=== PATIENT | male | born 1980 | race Caucasian/White ===

== ENCOUNTER 2016-11-02 15:38 | Emergency (ER) | payer OTHER ==
[~2016-11-02] VITALS: Ht 177.8 cm; Wt 71.6 kg
[2016-11-02 15:47] VITALS: TEMP 36.5; Ht 177.8 cm; Wt 71.6 kg
[2016-11-02] MEDS ORDERED: IBUP-1050 PO (15:50)
[2016-11-02] MEDS ORDERED: KETOROLAC TROMETHAMINE 30 MG/ML VIAL IV STA (16:18)
--- NOTE | 2016-11-02 16:20 | EMERGENCY ROOM VISIT NOTE ---
History Report prepared by [place]: Anjelica Ahuja Under the Supervision of: Dr. Lonnie Monte M.D. First contact with patient: 16:08 Chief Complaint: ABDOMINAL PAIN Stated Complaint: ABD PAIN Nursing Triage Summary: Patient arrives via ALS from [facility] in [place] with complaints of right lower quadrant abdominal pain. Denies radiation. Rated pain 10/10 when ALS arrived. Received 75mcg of Fentanyl and 1L bolus admin. by EMS. Patient now rating pain 5/10. Denies blood or pain with urination. History of Present Illness The patient is a 36 year old male who presents to the Emergency Room with complaints of intermittent right lower quadrant abdominal pain that began last week. He currently rates his discomfort as a 5/10 in severity. The patient states that he first noticed the pain last week, but states that it went away on its own. He states that today the pain returned suddenly. The patient notes that the pain radiates to his back and right testicle. He notes burning with urination, but denies any hematuria. The patient denies any history of kidney stones. He denies any fever, chills, nausea, or vomiting. The patient denies any recent injuries with work. He denies any active medical problems. The patient notes a history of a left sided hernia, noting that it was surgically repaired. He states that today he went to an urgent care in [place] and was referred to the emergency department for further work up. Source of History: patient, family, spouse/significant other Onset: last week Position: abdomen (RLQ) Symptom Intensity: 5/10 Timing: intermittent Associated Symptoms: + back pain, + urinary symptoms (burning with urniation ), No chills, No fevers, No nausea, No vomiting Note: Associated Symptoms: right testicular pain Review of Systems See HPI for pertinent positives & negatives. A total of 10 systems reviewed and were otherwise negative. Past Medical & Surgical Surgical Problems: (1) S/P hernia repair Old medical records were reviewed. Nurse's notes were reviewed and I agree with. . No history of kidney stones. Inguinal hernia repair. Still has appendix Family History No pertinent family history stated. Social History Smoking Status: Former Smoker Drug Use: none Marital Status: Housing Status: lives with significant other Occupation Status: employed Current/Historical Medications Scheduled Ibuprofen (Advil), 200-600 MG PO Q4H Scheduled PRN Oxycodone Immediate Rel Tab (Roxicodone Ir), 1-2 TAB PO Q4H PRN for Severe Pain Allergies Coded Allergies: Penicillins (Unverified Allergy, Unknown, RASH, 11/02/16) Physical Exam Vital Signs Date Time Temp Pulse Resp B/P Pulse Ox O2 Delivery O2 Flow Rate FiO2 11/02/16 19:28 77 18 137/81 96 Room Air 11/02/16 19:23 65 11/02/16 17:28 64 16 135/90 99 Room Air 11/02/16 15:52 81 11/02/16 15:47 36.5 64 16 141/104 98 Room Air Physical Exam General: Well developed well nourished, non-ill appearing young male, in no acute distress, breathing comfortably on room air. Normal speech HEENT: Normal cephalic atraumatic. Pupils are equal round and reactive to light. Clear anicteric. Extraocular movements are intact. Oropharynx is pink with moist mucous membranes. No swelling of the mouth lips or tongue. Neck: Supple with a midline trachea. No meningeal signs or stiffness, no JVD or bruits. No Stridor. Chest: Clear to auscultation bilaterally. No wheezes or rhonchi. No increased work of breathing. Heart: regular rate and rhythm. Abdomen: Minimally tender to the right lower quadrant to groin. Soft, nondistended without rebound guarding or rigidity. Gu: Normal testicles. No evidence of torsion, epididymitis, or mass. There may be a small hernia on the right that is felt with coughing only. No redness or warmth or evidence of incarceration. Extremities: No cyanosis clubbing or edema. No calf tenderness or assymetry Spine/Back. Non tender to palpation. No CVA tenderness Skin: Good turgor without rashes. Neurologic exam: Cranial nerves two through 12 are intact. Motor and sensation are intact and symmetrical throughout. Medical Decision & Procedures ER Provider Diagnostic Interpretation: CT results as stated below per my review and radiologist interpretation: ABDOMEN AND PELVIS CT WITHOUT CONTRAST CT DOSE: 460.24 mGy.cm HISTORY: Pain revalue for stone, appy, hernia TECHNIQUE: Multiaxial CT images of the abdomen and pelvis were performed without the use of intravenous and oral contrast according to the standard department stone protocol. COMPARISON STUDY: None. FINDINGS: Lung bases are clear. Liver spleen and pancreas are considered unremarkable. Gallbladder is negative for distention. Kidneys negative for hydronephrosis or calcification. The adrenal glands are unremarkable. The ureters normal in course and caliber. Bladder is midline with no evidence for a contain calcification. Bowel pattern within the abdomen and pelvis is nonobstructive. Patient is composed of the appendix are unremarkable. There are small bilateral fat-containing inguinal hernias. These are non bowel containing nonobstructive findings. IMPRESSION: 1. Small bilateral fat-containing inguinal hernias. 2. These hernias are non bowel containing nonobstructive findings. 3. Study is otherwise negative Electronically signed by: Jake Ly M.D. 11/02/2016 5:20 PM Dictated Date/Time: 11/02/2016 5:16 PM Laboratory Results 11/02/16 15:07 Red Blood Count 4.82, Mean Corpuscular Volume 87.1, Mean Corpuscular Hemoglobin 30.7, Mean Corpuscular Hemoglobin Concent 35.2, Mean Platelet Volume 12.2, Neutrophils (%) (Auto) 44.7, Lymphocytes (%) (Auto) 38.4, Monocytes (%) (Auto) 8.9, Eosinophils (%) (Auto) 7.0, Basophils (%) (Auto) 0.7, Neutrophils # (Auto) 3.36, Lymphocytes # (Auto) 2.89, Monocytes # (Auto) 0.67, Eosinophils # (Auto) 0.53, Basophils # (Auto) 0.05 11/02/16 15:07 Test 11/02/16 15:07 11/02/16 17:23 White Blood Count 7.52 K/uL (4.8-10.8) Red Blood Count 4.82 M/uL (4.7-6.1) Hemoglobin 14.8 g/dL (14.0-18.0) Hematocrit 42.0 % (42-52) Mean Corpuscular Volume 87.1 fL (80-100) Mean Corpuscular Hemoglobin 30.7 pg (25-34) Mean Corpuscular Hemoglobin Concent 35.2 g/dl (32-36) Platelet Count 197 K/uL (130-400) Mean Platelet Volume 12.2 fL (7.4-10.4) Neutrophils (%) (Auto) 44.7 % Lymphocytes (%) (Auto) 38.4 % Monocytes (%) (Auto) 8.9 % Eosinophils (%) (Auto) 7.0 % Basophils (%) (Auto) 0.7 % Neutrophils # (Auto) 3.36 K/uL (1.4-6.5) Lymphocytes # (Auto) 2.89 K/uL (1.2-3.4) Monocytes # (Auto) 0.67 K/uL (0.11-0.59) Eosinophils # (Auto) 0.53 K/uL (0-0.5) Basophils # (Auto) 0.05 K/uL (0-0.2) RDW Standard Deviation 44.0 fL (36.4-46.3) RDW Coefficient of Variation 13.8 % (11.5-14.5) Immature Granulocyte % (Auto) 0.3 % Immature Granulocyte # (Auto) 0.02 K/uL (0.00-0.02) Anion Gap 10.0 mmol/L (3-11) Est Creatinine Clear Calc Drug Dose 106.5 ml/min Estimated GFR () 114.7 Estimated GFR (Non- 99.0 BUN/Creatinine Ratio 14.2 (10-20) Calcium Level 8.9 mg/dl (8.5-10.1) Total Bilirubin 0.3 mg/dl (0.2-1) Direct Bilirubin < 0.1 mg/dl (0-0.2) Aspartate Amino Transf (AST/SGOT) 18 U/L (15-37) Alanine Aminotransferase (ALT/SGPT) 32 U/L (12-78) Alkaline Phosphatase 66 U/L (45-117) Total Protein 7.6 gm/dl (6.4-8.2) Albumin 4.3 gm/dl (3.4-5.0) Lipase 127 U/L (73-393) Urine Color YELLOW Urine Appearance CLEAR (CLEAR) Urine pH 6.5 (4.5-7.5) Urine Specific [place] 1.023 (1.000-1.030) Urine Protein NEG (NEG) Urine Glucose (UA) NEG (NEG) Urine Ketones NEG (NEG) Urine Occult Blood NEG (NEG) Urine Nitrite NEG (NEG) Urine Bilirubin NEG (NEG) Urine Urobilinogen NEG (NEG) Urine Leukocyte Esterase NEG (NEG) Laboratory studies as stated above per my review. Medications Administered Medications (Trade) Dose Ordered Sig/Charito Route Start Time Stop Time Status Last Admin Dose Admin Ketorolac Tromethamine (Toradol Inj) 30 mg NOW STAT IV 11/02/16 16:18 11/02/16 16:21 DC 11/02/16 16:57 30 MG Oxycodone HCl (Roxicodone Immediate Rel 5MG Home Pack) 1 homepack UD ONCE PO 11/02/16 19:45 11/02/16 19:46 DC 11/02/16 19:58 1 HOMEPACK ED Course 160: Past medical records reviewed. The patient was evaluated in room A3, and a complete history and physical examination were performed. 1617: Ordered Toradol Inj 30 mg IV. 1846: I reevaluated the patient and he is resting comfortably. We are waiting his urine culture. 1939: I reevaluated the patient and he is resting comfortably. I discussed the exam findings with him and I discussed the treatment plan. He verbalized complete understanding and agreement. He is ready to go home. 1944: Ordered Oxycodone HCl 1 homepack PO. Medical Decision Differentials include, but are not limited to; kidney stone, hernia, appendicitis, electrolyte or metabolic abnormality, UTI. This patient comes in as described above. He was placed in room A3. He was brought in after having right lower quadrant abdominal pain fairly did hurt his back as well as his groin. He has no history of kidney stones. On exam, he is not significantly tender. He does have some mild tenderness towards her groin. There is no evidence of incarcerated hernia and has a normal testicular exam. There is no evidence of testicular torsion or epididymitis. He has no urinary symptoms. IV access established. He had been given fentanyl IV prior and given IV Toradol here and was resting comfortably. He has no white count or fever to suggest infection or sepsis. He has no acute electrode or metabolic abnormalities. His urinalysis does not suggest a UTI or kidney stone. CAT scan shows no acute findings. He does have small bilateral fat- containing inguinal hernias this potentially could be causing symptoms although on exam I don't think so as he has no redness or warmth. I did have use ibuprofen for pain. It could be musculoskeletal. He was given OxyIR prescription if needed for further pain. He was warned that this could make him drows,y do not take before drinking, driving, working. He should return if : increasing pain, worsening of symptoms, fever or chills, any new problems concerns. Follow up with 1-2 days for recheck. The patient and his family were happy with plan and he was discharged home. Impression Primary Impression: Right lower quadrant abdominal pain Scribe Attestation The scribe's documentation has been prepared under my direction and personally reviewed by me in its entirety. I confirm that the note above accurately reflects all work, treatment, procedures, and medical decision making performed by me. Departure Information Dispostion Home / Self-Care Prescriptions Oxycodone Immediate Rel Tab (ROXICODONE IR) 5 Mg Tab 1-2 TAB PO Q4H Y for Severe Pain, #15 TAB Prov: Lonnie Monte M.D. 11/02/16 Forms Call Back Authorization, HOME CARE DOCUMENTATION FORM, IMPORTANT VISIT INFORMATION Patient Instructions My [facility] Additional Instructions Rest. Drink plenty of fluids. Use ibuprofen 400 mg every 6 hours as needed for pain For breakthrough pain,, may use OxyIR 5 mg, one or 2 pills every 4-6 hours as needed OxyIR may make you drowsy and do not take before drinking, driving, working Return if: Increasing pain, worsening of symptoms, fever or chills, redness or warmth, any new problems or concerns. Follow-up with your doctor in 1-2 days for recheck.
[2016-11-02 16:30] LABS: BASO % 0.7 %; BASO ABS # 0.05 K/uL (0-0.2); COMPLETE YES; IG% 0.3 %; LYMPH % 38.4 %; LYMPH ABS # 2.89 K/uL (1.2-3.4); MEAN CELL VOLUME 87.1 fL (80-100); MEAN CORPUSCULAR HEMOGLOBIN 30.7 pg (25-34); MEAN CORPUSCULAR HGB CONC 35.2 g/dl (32-36); MEAN PLATELET VOLUME 12.2 fL (7.4-10.4); MONO % 8.9 %; NEUT % 44.7 %; PLATELET COUNT 197 K/uL (130-400); RED BLOOD COUNT 4.82 M/uL (4.7-6.1); WHITE BLOOD COUNT 7.52 K/uL (4.8-10.8)
[2016-11-02 16:37] LABS: ALT/SGPT 32 U/L (12-78); AST/SGOT 18 U/L (15-37); BLOOD UREA NITROGEN 14 mg/dl (7-18); BUN/CREATININE RATIO 14.2 (10-20); CALCIUM 8.9 mg/dl (8.5-10.1); CARBON DIOXIDE 28 mmol/L (21-32); CHLORIDE 108 mmol/L (98-107); CREATININE 0.99 mg/dl (0.60-1.40); GLUCOSE 103 mg/dl (70-99); POTASSIUM 3.8 mmol/L (3.5-5.1); SODIUM 146 mmol/L (136-145)
[2016-11-02 16:40] LABS: ALKALINE PHOSPHATASE 66 U/L (45-117)
--- NOTE | 2016-11-02 17:21 | DIAGNOSTIC IMAGING REPORT ---
ABDOMEN AND PELVIS CT WITHOUT CONTRAST CT DOSE: 460.24 mGy.cm HISTORY: Pain revalue for stone, appy, hernia TECHNIQUE: Multiaxial CT images of the abdomen and pelvis were performed without the use of intravenous and oral contrast according to the standard department stone protocol. COMPARISON STUDY: None. FINDINGS: Lung bases are clear. Liver spleen and pancreas are considered unremarkable. Gallbladder is negative for distention. Kidneys negative for hydronephrosis or calcification. The adrenal glands are unremarkable. The ureters normal in course and caliber. Bladder is midline with no evidence for a contain calcification. Bowel pattern within the abdomen and pelvis is nonobstructive. Patient is composed of the appendix are unremarkable. There are small bilateral fat-containing inguinal hernias. These are non bowel containing nonobstructive findings. IMPRESSION: 1. Small bilateral fat-containing inguinal hernias. 2. These hernias are non bowel containing nonobstructive findings. 3. Study is otherwise negative Electronically signed by: Jake Ly M.D. 11/02/2016 5:20 PM Dictated Date/Time: 11/02/2016 5:16 PM
[2016-11-02] MEDS ORDERED: OXYC1TAB3 PO (19:23)
[2016-11-02 19:24] LABS: URINE APPEARANCE CLEAR (CLEAR); URINE BILIRUBIN NEG (NEG); URINE COLOR YELLOW; URINE NITRITE NEG (NEG); URINE PH 6.5 (4.5-7.5); URINE SPECIFIC GRAVITY 1.023 (1.000-1.030); UROBILINOGEN NEG (NEG)
[2016-11-02 19:28] VITALS: BP 137/81; PULSE 77; O2SAT 96
[2016-11-02 19:29] LABS: MANUAL MICROSCOPIC REQUIRED? NO; REVIEW REQ? NO
[2016-11-02] MEDS ORDERED: OXYCODONE IR HOME PACK PO ONE (19:45)
== END 2016-11-02 19:58 | disposition home or self-care (01) ==
LOC: C.EDA 15:40
DX: R10.31 Right lower quadrant pain (principal); Z87.891 Personal history of nicotine dependence

== ENCOUNTER → 2017-02-23 | Outpatient (CLI) | payer OTHER ==
[~2017-02-23] MED LIST: IBUP-1050 PO; OXYC1TAB3 PO
[2017-02-23 13:10] LABS: ALT/SGPT 39 U/L (12-78); BLOOD UREA NITROGEN 17 mg/dl (7-18); BUN/CREATININE RATIO 17.4 (10-20); CARBON DIOXIDE 27 mmol/L (21-32); CHLORIDE 108 mmol/L (98-107); CHOLESTEROL 108 mg/dl (0-200); CREATININE 0.99 mg/dl (0.60-1.40); GLUCOSE 88 mg/dl (70-99); POTASSIUM 3.7 mmol/L (3.5-5.1); SODIUM 144 mmol/L (136-145); TRIGLYCERIDES 47 mg/dl (0-150); VERY LOW DENSITY LIPOPROT CALC 9 mg/dl
[2017-02-23 13:17] LABS: ALB/GLOB RATIO 1.2 (0.9-2); ALKALINE PHOSPHATASE 49 U/L (45-117); AST/SGOT 24 U/L (15-37); CHOLESTEROL/HDL RATIO 2.2; HDL CHOLESTEROL 50 mg/dl; LDL CHOLESTEROL CALCULATED 49 mg/dl
[2017-02-23 13:32] LABS: DAYS OF ABSTINENCE 6; METHOD OF COLLECTION MASTURBATION; SEMEN COLOR GRAY OR GRAY-WHITE (GRY/GRYWHTE); SEMEN TIME OF COLLECTION 910; SEMEN VOLUME 5.8 ML (>1.5); TYPE OF SPECIMEN CONTAINER STERILE CUP
[2017-02-23 13:33] LABS: SPERM VIABILITY STAIN NOT INDICATED % (>58%)
== END | disposition home or self-care (01) ==
LOC: C.LAB 10:15
PROVIDERS: ATTEND Neuromusculoskeletal Medicine & OMM
DX: Z00.00 Encounter for general adult medical examination without abnormal findings (principal); N46.9 Male infertility, unspecified

== ENCOUNTER 2020-03-14 12:59 | Observation (INO) ==
[2020-03-14] MEDS ORDERED: ONDANSETRON INJ 2 MG/ML 2 ML VIAL IV STA (13:20)
[2020-03-14] MEDS ORDERED: SODIUM CHLORIDE 0.9% 1000ML 1,000 ML IV SCH (13:30)
[2020-03-14] MEDS: HYDROmorphone INJ 1 MG/ML SYRINGE IV PRN ×2 (13:55→15:02)
[2020-03-14 14:13] LABS: Appearance Urine Clear (Clear); Bilirubin Urine Negative (Negative); Blood Urine Negative (Negative); Color Urine Yellow; Glucose Urine UA Negative (Negative); Ketones Urine Negative (Negative); Leukocyte Esterase Urine Negative (Negative); Nitrite Urine Negative (Negative); Protein Urine Negative (Negative); Specific Gravity Urine 1.021 (1.000-1.030); Urobilinogen Urine Negative (Negative)
[2020-03-14 14:19] LABS: iSTAT Hemoglobin 14.3 g/dl (14.0-18.0); iSTAT Ionized Calcium 1.24 mmol/l (1.12-1.32); iSTAT Potassium 3.9 mmol/L (3.3-5.0)
[2020-03-14 14:25] LABS: Albumin Level 4.2 gm/dl (3.4-5.0); BUN Creatinine Ratio 10.9 (10-20); Calcium 9.1 mg/dl (8.5-10.1); Creatinine Clr Calc Pharmacy 94.4 ml/min; Est GFR (African American) 101.1; Est GFR (Non-African American) 87.2; Potassium 3.8 mmol/L (3.5-5.1)
[2020-03-14 14:28] LABS: Albumin Globulin Ratio 1.1 (0.9-2); Bilirubin,Total 0.4 mg/dl (0.2-1); Globulin 3.9 gm/dl (2.5-4.0); Total Protein 8.1 gm/dl (6.4-8.2)
[2020-03-14 14:43] LABS: Basophils # (auto) 0.04 K/uL (0-0.2); Basophils % (auto) 0.6 %; Eosinophils % (auto) 5.6 %; Hematocrit (blood only) 40.6 % (42-52); Immature Granulocytes # (auto) 0.02 K/uL (0.00-0.02); Immature Granulocytes % (auto) 0.3 %; Lymphocytes # (auto) 1.65 K/uL (1.2-3.4); Lymphocytes % (auto) 23.3 %; Mean Corpuscular Hemoglobin 30.4 pg (25-34); Mean Corpuscular Hgb Conc 34.5 g/dL (32-36); Mean Corpuscular Volume 88.3 fL (80-100); Mean Platelet Volume 11.9 fL (7.4-10.4); Monocytes # (auto) 0.45 K/uL (0.11-0.59); Monocytes % (auto) 6.3 %; Neutrophils # (auto) 4.53 K/uL (1.4-6.5); Neutrophils % (auto) 63.9 %; Platelet Count 191 K/uL (130-400); RDW Coefficient of Variation 13.7 % (11.5-14.5); RDW Standard Deviation 44.4 fL (36.4-46.3); White Blood Count 7.09 K/uL (4.8-10.8)
[2020-03-14] MEDS ORDERED: IOVERSOL 100ml IV PRN (15:11)
--- NOTE | 2020-03-14 15:32 | CT Scan Report ---
CT SCAN OF THE ABDOMEN AND PELVIS WITH IV CONTRAST CLINICAL HISTORY: Left inguinal hernia. COMPARISON STUDY: Abdominal CT dated 11/02/2016. TECHNIQUE: Following the IV administration of 93 cc of Optiray 320, CT scan of the abdomen and pelvi s is performed from the lung bases to the proximal femora. Images are reviewed in the axial, sagittal , and coronal planes. IV contrast was administered without complication. A dose lowering technique wa s utilized adhering to the principles of ALARA. CT DOSE: 384.79 mGycm FINDINGS: Lung bases: The heart is normal in size and without pericardial effusion. The lung bases are clear. Liver: The contrast-enhanced liver is normal in size, contour, and attenuation. There is no intrahepa tic biliary ductal dilatation. The hepatic veins and portal veins are patent. Gallbladder: Unremarkable. Spleen: Normal in size and attenuation. Pancreas: Unremarkable. Adrenal glands: Unremarkable. Kidneys: The contrast enhanced kidneys are normal in size and without hydronephrosis. The kidneys enh ance symmetrically. Subcentimeter cortical hypodensities likely represent cysts but are too small for definitive characterization. Abdominal vasculature: The abdominal aorta is normal in course and caliber noting mild but age advanc ed atherosclerotic calcification. Bowel: A moderate left inguinal hernia contains a loop of small bowel as seen on image #[id number]. The dist al small bowel is decompressed, and the proximal small bowel is distended and fluid-filled measuring up to 3.4 cm in diameter. The appearance is consistent with a small bowel obstruction secondary to in carcerated left inguinal hernia. No focally thick walled bowel loops are identified. No pneumatosis i ntestinalis or portal venous gas is seen. The appendix is well-visualized and normal. Peritoneum: There is no intraperitoneal free air or abdominal ascites. There is a fat-containing umbi lical hernia. Lymphadenopathy: None. Pelvic viscera: The bladder, prostate, and seminal vesicles are normal as imaged. A left inguinal her marah contains a segment of small bowel and fluid. Skeletal structures: Scattered bone islands are seen throughout the pelvis. No lytic or blastic lesio ns are seen. IMPRESSION: 1. Small bowel obstruction secondary to an incarcerated left inguinal hernia. 2. No intraperitoneal free air is seen. There are no focally thick walled bowel loops identified, and there is no pneumatosis intestinalis or portal venous gas. ACT 112: Negative or not required by law. Electronically signed by: Clinton Schultz M.D. 03/14/2020 3:29 PM
--- NOTE | 2020-03-14 16:30 | History & Physical Report ---
Date of Service March 14, 2020 Assessment & Plan (1) Hernia, inguinal, left: Incarcerated small bowel, will need urgent repair. History of Present Illness Primary Care Provider: Mary Ann Solomon DO 39 y/o male with previous left inguinal hernia now with intermittent bulging and pain usually able to reduce this at home until today. No N/V. Had breakfast this morning. Allergies Allergy/AdvReac Type Severity Reaction Status Date / Time amoxicillin Allergy Unknown Verified 03/14/20 13:47 Home Medications Home Medications Medication Instructions Recorded Confirmed Type docusate sodium [Colace] 100 mg PO BID #60 cap 03/14/20 Rx ibuprofen 400 mg PO Q6H PRN 03/14/20 03/14/20 History oxycodone 5 mg PO Q6H PRN #14 tab 03/14/20 Rx sennosides [Senokot] 8.6 mg PO HS #30 tab 03/14/20 Rx Past Med/Surg History Medical History Right inguinal hernia Surgical History H/O hernia repair H/O right inguinal hernia repair (10/27/19) Open Right Direct Inguinal Hernia Repair with Mesh Dr. 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 Feels Safe at Home: Yes Smoking Status: Former smoker Second Hand Exposure: No ; Hx Alcohol Use: Yes Alcohol type: hard liquor Alcohol Intake Frequency: Weekly Hx Substance Use: No Childhood Exposure to Second-Hand Smoke: Yes Diet Comment: regular caffeine: No during the past year weight has: remained stable Dental Care, Regularly: No Physical Activity Frequency: 3-4 Times per Week Physical Activity Frequency Comment: walking Seatbelt Use: always Sunscreen Use: No Review of Systems Constitutional: no fever and no chills Respiratory: no cough and no dyspnea Gastrointestinal: + abdominal pain; no nausea and no vomiting Physical Exam Constitutional: WD/WN, vitals as above Respiratory: normal respiratory effort, lungs clear to auscultation Cardiovascular: RRR, no murmur, no edema Gastrointestinal (Abdomen): Percussion/Palpation: + abdomen tender (lrft iguinal hernia, unable to reduce) and abdomen soft Results & Data Results & Data ([facility]) Vital Signs (Past 12 Hours) Vital Signs Temp Pulse Pulse Resp BP BP Pulse Ox 03/14/20 16:10 89 92 H 17 151/86 H 151/86 H 99 03/14/20 16:09 94 03/14/20 15:30 64 14 134/84 96 03/14/20 15:01 66 19 03/14/20 15:00 63 19 141/87 H 98 03/14/20 14:30 59 L 16 142/93 H 98 03/14/20 14:00 72 14 140/90 97 03/14/20 13:52 98 03/14/20 13:05 36.4 C L 89 18 156/86 H 99 Supervising Physician Co-Signing Physician Notes Patient seen and examined, labs and imaging reviewed, agree with above. 39-year-old male with a history of an open left inguinal hernia performed 17 years ago, and a history of a recent open right inguinal hernia. With mesh performed by Dr. Lares earlier this year, presents to the emergency department with several hours of left groin pain with a bulge. He started havi ng increased pain intermittently over the past few weeks. Today at [employer] he noticed significant pain and was unable to relieve the pain. He presented to the emergency department where a CT scan was performed and showed a left inguinal hernia with incarcerated bowel causing a small bowel obstruction. The ER physician felt he was successful in reducing the hernia, and the patient stated his pain felt better. However, after being asked to walk, he developed the same pain as was present before. On exam he is afebrile with stable vitals. He has a well-healed old left groin scar with a healing right groin scar. On the left there is a palpable inguinal hernia. I attempted to reduce this at the bedside was unsuccessful. His labs are normal. I personally reviewed his CT scan and agree that there is a left inguinal hernia containing bowel resulting in a small bowel obstruction. 39-year-old male with recurrent incarcerated left inguinal hernia causing a bowel obstruction, plan for urgent repair Plan for laparoscopic left inguinal hernia repair, possible open, possible laparotomy, possible bowel resection The risk of the procedure were discussed to include but not limited to bleeding, infection, recurrence, chronic pain, conversion open, damage from structures, need for future more extensive surgery, and the risk of anesthesia Preop antibiotics Likely admit for overnight observation Diagnosis, details of the surgery and recovery, and plan of care were discussed the patient, all questions were answered, the patient expressed understanding agrees with plan of care as stated. PG Care Time/CCT Total # of Minutes Spent Total Time Spent with Patient: Total time spent is greater than 50% in coordination of care (as documented) at patient's floor/unit and/or counseling patient: Coding Level of Care Code None Diagnoses Hernia, inguinal, left K40.90
[2020-03-14] MEDS ORDERED: DEXAMETHASONE SOD INJ 4 MG/ML VIAL ONE (16:45)
[2020-03-14] MEDS ORDERED: LIDOCAINE HCL 2% 2 ML VIAL/AMP(20MG/ML) INFIL ONE (16:45)
[2020-03-14] MEDS ORDERED: ONDANSETRON INJ 2 MG/ML 2 ML VIAL ONE (16:45)
[2020-03-14] MEDS ORDERED: NEOSTIGMINE METHYLSULFATE 5 MG/5 ML SYR ONE (16:45)
[2020-03-14] MEDS ORDERED: PROPOFOL IV EMULSION 10 MG/ML 20 ML VIAL IV ONE (16:45)
[2020-03-14] MEDS ORDERED: fentaNYL citrate 100 MCG/2 ML VIAL ONE (16:45)
[2020-03-14] MEDS ORDERED: MIDAZOLAM HCL 1 MG/ML 2ML VIAL ONE (16:45)
[2020-03-14] MEDS ORDERED: GLYCOPYRROLATE 0.2 MG/ML VIAL ONE (16:45)
[2020-03-14] MEDS ORDERED: BUPIVACAINE 0.5 % 5 MG/1 ML MPF 30ML VIAL ONE (16:48)
[2020-03-14] MEDS ORDERED: CEFAZOLIN 2,000 MG/15 ML IV PUSH IV ONE (17:00)
--- NOTE | 2020-03-14 17:03 | Anesthesiology Consultation ---
Date of Service March 14, 2020 Assessment & Plan Chart Review Chart Review: Acceptable Risk for Surgery and Patient NOT seen in Pre Admission Testing Consults Requested none ASA [id number] Proposed Anesthesia Anesthesia Type: General History Surgery Operation Date: 03/14/20 12:00 Proposed Procedures p Laparoscopic Incarcerated Inguinal Hernia Repair - Gary Rodriguez, , FACS Height/Weight Height: 5 ft 10 in Weight: 71.3 kg Allergies Allergy/AdvReac Type Severity Reaction Status Date / Time amoxicillin Allergy Unknown Verified 03/14/20 13:47 Medications Home Medications Medication Instructions Recorded Confirmed Last Taken docusate sodium [Colace] 100 mg PO BID #60 cap 03/14/20 Unknown ibuprofen 400 mg PO Q6H PRN 03/14/20 03/14/20 03/10/20 400 mg oxycodone 5 mg PO Q6H PRN #14 tab 03/14/20 Unknown sennosides [Senokot] 8.6 mg PO HS #30 tab 03/14/20 Unknown Active Medications Generic Name Dose Route Start Last Admin Trade Name Freq PRN Reason Stop Dose Admin Hydromorphone HCl 1 mg 03/14/20 13:20 03/14/20 15:02 Dilaudid IV 03/28/20 13:19 1 mg Q15M PRN Administration Pain Ioversol 93 ml 03/14/20 15:11 03/14/20 15:11 Optiray 320 100ml IV 03/18/20 15:10 93 ml ONCE PRN Administration Interaction Checking NPO Date Last Intake of Fluids: 03/14/20 Time Last Intake of Fluids: 06:00 Date Last Intake of Solids: 03/14/20 Time Last Intake of Solids: 11:00 Past Medical History Medical History Right inguinal hernia Exercise / Class Metabolic Activity II 4-5 Yardwork/Stairs/Walk up hill Past Family History Family History Father Myocardial infarction, Onset Age: 55 Grandmother (Paternal) Breast cancer, Onset Age: 80 Uncle Diabetes Grandmother Diabetes Past Surgical History Surgical History H/O hernia repair H/O right inguinal hernia repair (10/27/19) Open Right Direct Inguinal Hernia Repair with Mesh Dr. Lares 10/27/19 Hx of LASIK Past Anesthesia History No Hx of Anesthesia Complications and No Family Hx of Anesthesia Complications History of PONV No Hx of PONV and No Hx of Motion Sickness Social History Smoking Status: Former smoker Hx Alcohol Use: Yes Alcohol type: hard liquor alcohol intake frequency: a few times a week Hx Substance Use: No Physical Exam Vital Signs Last Vital Signs Temp 37.0 C 03/14/20 16:51 Pulse 88 03/14/20 16:51 Resp 20 03/14/20 16:51 BP 143/92 H 03/14/20 16:51 Pulse Ox 98 03/14/20 16:51 Testing Laboratory Results 03/14/20 13:52 03/14/20 13:52 Urine Color Yellow 03/14/20 13:45 Urine Appearance Clear (Clear) 03/14/20 13:45 Urine pH 7.0 (4.5-7.5) 03/14/20 13:45 Ur Specific [place] 1.021 (1.000-1.030) 03/14/20 13:45 Urine Protein Negative (Negative) 03/14/20 13:45 Urine Glucose (UA) Negative (Negative) 03/14/20 13:45 Urine Ketones Negative (Negative) 03/14/20 13:45 Urine Nitrite Negative (Negative) 03/14/20 13:45 Ur Leukocyte Esterase Negative (Negative) 03/14/20 13:45 03/14/20 14:07 POC Glucose (other) 103 H
[2020-03-14] MEDS ORDERED: ONDANSETRON INJ 2 MG/ML 2 ML VIAL IV PRN ×2 (17:10→20:20)
[2020-03-14] MEDS ORDERED: PROMETHAZINE HCL 12.5 MG in SODIUM CHLORIDE 0.9% 50 ML IV PRN (17:10)
[2020-03-14] MEDS ORDERED: METOCLOPRAMIDE HCL INJ 5 MG/ML 2 ML VIAL IV PRN (17:10)
[2020-03-14] MEDS ORDERED: fentaNYL citrate 100 MCG/2 ML VIAL IV PRN (17:10)
[2020-03-14] MEDS ORDERED: ATROPINE SULFATE 0.1 MG/ML 10ML SYR IV PRN (17:10)
[2020-03-14] MEDS ORDERED: HYDROmorphone INJ 2 MG/ML SYR/VIAL IV PRN (17:10)
[2020-03-14] MEDS ORDERED: ePHEDrine sulfate 50 MG/ML AMP IV PRN (17:10)
[2020-03-14] MEDS ORDERED: SUCCINYLCHOLINE CHLORIDE 20 MG/ML 10 ML VIAL IV ONE (17:49)
[2020-03-14] MEDS ORDERED: ROCURONIUM BROMIDE 10 MG/ML 5 ML VIAL IV ONE (17:49)
[2020-03-14] MEDS ORDERED: LARYING-O-JET KIT (LTA) ONE (17:49)
--- NOTE | 2020-03-14 18:35 | Operative Report ---
PG Post Operative Report Pre & Post Diagnosis Operation Date: 03/14/20 12:00 Pre-Op Diagnosis: incarcerated left inguinal hernia Post-Op Diagnosis: incarcerated left recurrent direct inguinal hernia I identified the patient and participated in the time-out.: Yes Procedure Operation Date: 03/14/20 12:00 Actual Procedures p Laparoscopic Incarcerated Recurrent Left Inguinal Hernia Repair with mesh(Left) - Gary Rodriguez DO, ANNE MARIE Surgeon Gary Rodriguez DO, ANNE MARIE Race Car Driver Tyrone Villalobos Estimated Blood Loss 7 Findings Consistent with Post-Op Diagnosis Hernia reduced after induction. Laparoscopic TEPP repair performed. Small direct defect identified a site of recurrence. 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 Specimens None Anesthesia Type General Complications none Disposition Accompanied Patient To Recovery: No Disposition: Recovery Room Indications 39-year-old male with a history of a prior open left inguinal hernia repair 17 years ago presented with incarcerated left inguinal hernia repair. CT showed a bowel obstruction secondary to the hernia. Plan for laparoscopic left inguinal hernia repair, possible open, possible laparotomy, possible bowel resection. The risks of the procedure were discussed, all questions were answered, and the patient agreed to proceed with surgery as planned. Description of Procedure The patient was properly identified, consented, and taken to the operating room where he was placed in the supine position. General endotracheal anesthesia was induced. SCDs and a safety belt were placed. A collins catheter was placed. Preoperative antibiotics were administered. The patient's groins and abdomen were prepped and draped in the standard sterile fashion. Surgical timeout was performed and all parties were in agreement that this was the correct patient and procedure to be performed and we continued as planned. After induction, the hernia was reduced. A transverse infraumbilical incision was made to the right of midline with electrocautery and deepened down to the fascia with blunt dissection. A transverse incision was made in the anterior rectus sheath on the right. The rectus muscle was pulled laterally exposing the posterior rectus sheath. A large Nancy was used to bluntly dissect the preperitoneal space down to the pubic symphysis. This was then replaced with a laparoscopic preperitoneal dissection balloon, which was inflated under direct visualization and held in place for approximately 30 seconds. This was then removed and the preperitoneal space was insufflated with carbon dioxide which the patient tolerated without incident. Two 5 mm ports were then placed in the midline. Dissection started on the left, beginning laterally at the anterior superior iliac spine. Andre's ligament was then dissected medially. There was evidence of a prior repair. There was evidence of a high ligation. The cord structures were circumferentially dissected. There was no evidence of a recurrent indirect inguinal hernia. There was a small direct defect. There was a small suture present at the site. The contralateral side was not inspected as he had had a recent open inguinal hernia repair. Progrip mesh was placed on the left and covered the direct, indirect, and femoral spaces. The mesh was held in place, the ports were removed, and the space was allowed to collapse. The anterior rectus sheath fascia was closed with 0 Vicryl suture. The skin of all port sites were closed with 4-0 Monocryl subcuticular suture, and Dermabond was placed over the incisions. The patient was extubated in the operating room and taken to the PACU for recovery without apparent incident. Any air in the scrotum was reduced, and the testicles were confirmed to be in the scrotum. All sponge, instrument, and needle counts were correct at the conclusion of the procedure. The patient tolerated the procedure well. The physician's household assistant was present and scrubbed for the entirety of the case. He was critical in positioning the patient, prepping and draping, reducing the hernia, retraction and exposure, driving the laparoscope, closure of the inci sions, and placement of the dressings. I attest to the content of the Intraoperative Record and any orders documented therein. Any exceptions are noted below.
--- NOTE | 2020-03-14 19:48 | Anesthesiology Progress Note ---
Date of Service March 14, 2020 Anesthesia Post Procedure Vital Signs Vital Signs: Temp Pulse Pulse Resp BP BP Pulse Ox 03/14/20 19:35 36.6 C 65 13 140/84 94 03/14/20 19:25 63 12 135/86 100 03/14/20 19:19 36.4 C L 97 H 12 158/95 H 94 03/14/20 16:51 37.0 C 88 20 143/92 H 98 03/14/20 16:45 36.4 C L 88 17 148/88 H 99 03/14/20 16:40 88 88 17 148/88 H 148/88 H 99 03/14/20 16:10 89 92 H 17 151/86 H 151/86 H 99 03/14/20 16:09 94 03/14/20 15:30 64 14 134/84 96 03/14/20 15:01 66 19 03/14/20 15:00 63 19 141/87 H 98 03/14/20 14:30 59 L 16 142/93 H 98 03/14/20 14:00 72 14 140/90 97 03/14/20 13:52 98 03/14/20 13:05 36.4 C L 89 18 156/86 H 99 Pain Intensity Left Groin: Pain Intensity: 4 Transfer of Care Handoff Completed per policy Notes Mental Status: alert / awake / arousable and participated in evaluation Patient Amnestic to Procedure: Yes Nausea / Vomiting: adequately controlled Pain: adequately controlled Airway Patency, RR, SpO2: stable & adequate BP & HR: stable & adequate Hydration State: stable & adequate Anesthetic Complications: no major complications apparent
[2020-03-14] MEDS ORDERED: IBUPROFEN 600 MG TAB PO PRN (20:20)
[2020-03-14] MEDS ORDERED: MoRPHine SULFATE 4 MG/ML 1 ML CARP\\VIAL IV PRN (20:20)
[2020-03-14] MEDS ORDERED: MoRPHine SULFATE 2 MG/ML CARP IV PRN (20:20)
[2020-03-14] MEDS: LACTATED RINGER'S 1,000 ML IV SCH (20:32)
[2020-03-15] MEDS: LACTATED RINGER'S 1,000 ML IV SCH (08:40)
[2020-03-15] MEDS: OXYCODONE/ACETAMINOPHEN 5mg/325mg TAB PO PRN ×2 (08:40→13:18)
--- NOTE | 2020-03-15 10:02 | Surgery Progress Note ---
Date of Service March 15, 2020 Assessment & Plan (1) Hernia, inguinal, left: POD 1 repair incarcerated hernia discharge when tolerating diet Supervising Physician Co-Signing Physician Notes Patient seen and examined, agree with above. POD#1 lap left recurrent incarcerated inguinal hernia repair with obstruction. Doing well, pain improved, tolerated liquids. incisions healing well, no seroma or early recurrence. adv diet, d/c after lunch. f/u in 2 weeks. activity restriction and wound care instructions reviewed. Subjective feels better, no c/o Physical Exam Gastrointestinal (Abdomen): Inspection/Auscultation: + abdominal surgical incision (clean, dry) Percussion/Palpation: abdomen soft Results & Data Vital Signs (Past 12 Hours) Vital Signs Temp Pulse Resp BP Pulse Ox Pulse Ox 03/15/20 07:38 36.6 C 80 16 125/76 95 03/15/20 04:00 36.6 C 60 18 119/71 97 03/14/20 23:30 99 03/14/20 23:10 36.9 C 93 H 18 128/82 99 PG Care Time/CCT Total # of Minutes Spent Total Time Spent with Patient: Total time spent is greater than 50% in coordination of care (as documented) at patient's floor/unit and/or counseling patient: Coding Level of Care Code None Diagnoses Hernia, inguinal, left K40.90
--- NOTE | 2020-03-16 14:17 | Emergency Department Note ---
History of Present Illness General Chief complaint: Groin Pain Stated complaint: SEVERE KIDNEY STONE PAIN Time Seen by Provider: 03/14/20 13:10 Source: patient, EMS, RN notes reviewed and old records reviewed Mode of arrival: ambulatory Limitations: no limitations History of Present Illness Provider complaint: Left groin pain Onset (ago): hour(s) 2 Location: pelvis Radiation: back Severity: moderate Pain Consistency: + colicky Maximum Pain Intensity: 5 Current Pain Intensity: 5 Quality: + aching Relieved By: + immobilization Exacerbated By: + movement Associated symptoms: + denies other symptoms; no chest pain, no fever/chills, no headaches, no nausea/vomiting and no shortness of breath Treatments prior to arrival: none This is a 39-year-old male who presents emergency department complaining of a bulge to his left groin. In addition to the bulge the patient is also complaining of severe abdominal pain. The patient has a history of hernia repairs. The patient reports the pain started approximately 2 hours ago. He describes the pain as a burning sensation. He reports movement makes the pain worse however immobilization makes the pain better. He has not taken anything for the pain prior to arrival. Home Medications Home Medications Medication Instructions Recorded Confirmed Type ibuprofen 400 mg PO Q6H PRN 03/14/20 03/14/20 History oxycodone-acetaminophen [Percocet] 1 - 2 tab PO Q4H PRN #15 tab 03/15/20 Rx Allergies Allergy/AdvReac Type Severity Reaction Status Date / Time amoxicillin Allergy Unknown Verified 03/14/20 13:47 Past Med/Surg History Medical History Right inguinal hernia Surgical History H/O hernia repair H/O right inguinal hernia repair (10/27/19) Open Right Direct Inguinal Hernia Repair with Mesh Dr. Lares 10/27/19 Hx of HEYDI S/P inguinal hernia repair 03/14/20 Dr. 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 Feels Safe at Home: Yes Smoking Status: Never smoker Second Hand Exposure: No ; Hx Alcohol Use: Yes Alcohol type: hard liquor Alcohol Intake Frequency: Weekly Hx Substance Use: No Childhood Exposure to Second-Hand Smoke: Yes Diet Comment: regular caffeine: No during the past year weight has: remained stable Dental Care, Regularly: No Physical Activity Frequency: 3-4 Times per Week Physical Activity Frequency Comment: walking Seatbelt Use: always Sunscreen Use: No Review of Systems A total of 10 systems reviewed and were otherwise negative Physical Exam VITAL SIGNS - Vital signs and nursing notes were reviewed. GENERAL - 39-year-old male appearing stated age who is in no acute distress. Communicates well with provider and answers questions appropriately. SKIN - Without rashes. HEAD - NC/AT. EYES - PERRL with EOMI bilaterally. Sclera anicteric. Palpebral conjunctiva p ink and moist with no injection noted. EARS - No deformities of external structures noted on gross examination bilaterally. No pain elicited with palpation of the tragus bilaterally. External auditory canals without discharge or otorrhea. Tympanic membranes pearly ruvalcaba without retraction or bulging. No fluid or purulent material visualized behind the TM. Handle of malleus, umbo, cone of light, pars tensa/flaccid all easily visualized. NOSE - Midline and without cyanosis. No epistaxis or purulent drainage noted. Septum midline without deviation or septal hematoma noted. MOUTH/OROPHARYNX - Without perioral cyanosis. Buccal mucosa pink and moist and without leukoplakia. Tongue midline with equal elevation of palate bilaterally. No tonsillar hypertrophy, erythema, or exudates noted. dentition noted. NECK - Neck with FROM. Supple to palpation. lymphadenopathy noted. No nuchal rigidity. LUNGS - Chest wall symmetric without accessory muscle use, intercostals retractions, or central cyanosis. Normal vesicular breath sounds CTA B/L. No wheezes, rales, or rhonchi appreciated. CARDIAC - RRR with S1/S2. No murmur, rubs, or gallops appreciated. ABDOMEN - Abdominal contour without pulsations or visible masses. BS normoactive all four quadrants. large irreducible hernia, left pelvic area EXTREMITIES - No clubbing or peripheral cyanosis. No pretibial edema present. +3/5 radial, posterior tibial, and dorsalis pedis pulses palpated throughout. +5/5 strength noted in UE/LE bilaterally. NEUROLOGIC - Cranial nerves II through XII grossly intact. Sensory intact to light touch throughout. Patellar reflexes +2/4. PSYCH - A&Ox3 and cooperates fully with examiner. Pt is very pleasant and interacts well with examiner. Course Administered Medications Discontinued Medications Bupivacaine HCl (Marcaine 0.5% Mpf) Confirm Administered Dose 30 ml .ROUTE .STK- MED ONE Stop: 03/14/20 16:49 Last Admin: 03/14/20 18:26 Dose: 29 ml Documented by: [id number] Cefazolin Sodium (Ancef 2000mg) Confirm Administered Dose 2,000 mg IV .STK-MED ONE Stop: 03/14/20 17:01 Last Admin: 03/14/20 17:42 Dose: 2,000 mg Documented by: [id number] Hydromorphone HCl (Dilaudid) 1 mg IV Q15M PRN PRN Reason: Pain Stop: 03/28/20 13:19 Last Admin: 03/14/20 15:02 Dose: 1 mg Documented by: [id number] Admin: 03/14/20 13:55 Dose: 1 mg Documented by: [id number] Sodium Chloride (Nss 1000ml) 1,000 mls @ 999 mls/hr IV .Q1H1M EDIN Stop: 03/14/20 14:30 Last Infusion: 03/14/20 14:54 Dose: 0 mls/hr Documented by: [id number] Admin: 03/14/20 13:53 Dose: 999 mls/hr Documented by: [id number] Lactated Ringer's (Lr) 1,000 mls @ 80 mls/hr IV .[id number] [facility] Stop: 04/13/20 20:19 Last Admin: 03/15/20 08:40 Dose: 80 mls/hr Documented by: [id number] Infusion: 03/15/20 08:40 Dose: 80 mls/hr Documented by: [id number] Infusion: 03/15/20 05:31 Dose: 80 mls/hr Documented by: [id number] Admin: 03/14/20 20:32 Dose: 80 mls/hr Documented by: [id number] Ioversol (Optiray 320 100ml) 93 ml IV ONCE PRN PRN Reason: Interaction Checking Stop: 03/18/20 15:10 Last Admin: 03/14/20 15:11 Dose: 93 ml Documented by: [id number] Morphine Sulfate (Morphine Sulfate) 2 mg IV Q1H PRN PRN Reason: MILD Pain (Scale 1,2,3) Stop: 03/28/20 20:19 Last Admin: 03/14/20 20:29 Dose: 2 mg Documented by: [id number] Morphine Sulfate (Morphine Sulfate) 4 mg IV Q1H PRN PRN Reason: MODERATE Pain (Scale 4,5,6) Stop: 03/28/20 20:19 Last Admin: 03/14/20 23:26 Dose: 4 mg Documented by: [id number] Ondansetron HCl (Zofran) 4 mg IV NOW STA Stop: 03/14/20 13:21 Last Admin: 03/14/20 13:54 Dose: 4 mg Documented by: [id number] Oxycodone/Acetaminophen (Percocet 5mg/325mg) 1 tab PO Q4H PRN PRN Reason: MODERATE Pain (Scale 4,5,6) Stop: 03/28/20 20:19 Last Admin: 03/15/20 13:18 Dose: 1 tab Documented by: [id number] Admin: 03/15/20 08:40 Dose: 1 tab Documented by: [id number] Medical Decision Making Differential Diagnosis Appendicitis, testicular torsion, infections, diverticulitis, UTI, obstruction, mesenteric ischemia, aortic pathology, inflammatory bowel disease, renal colic, PUD, pancreatitis, biliary pathology, hernia, volvulus, constipation, as well as other pathologies. Medical Records Attestation: I reviewed the patient's medical records. Home Medications Current Medication List: was personally reviewed by me Laboratory Data Attestation: I reviewed the patient's lab results. Result diagrams: 03/14/20 13:52 03/14/20 13:52 Lab Results 03/14/20 03/14/20 03/14/20 Range/Units 13:45 13:52 13:52 WBC 7.09 (4.8-10.8) K/uL RBC 4.60 L (4.7-6.1) M/uL Hgb 14.0 (14.0-18.0) g/dL POC Hgb (14.0-18.0) g/dl Hct 40.6 L (42-52) % POC Hct (42-52) % MCV 88.3 (80-100) fL MCH 30.4 (25-34) pg MCHC 34.5 (32-36) g/dL RDW Std Deviation 44.4 (36.4-46.3) fL RDW Coeff of Alda 13.7 (11.5-14.5) % Plt Count 191 (130-400) K/uL MPV 11.9 H (7.4-10.4) fL Immature Gran % (Auto) 0.3 % Neut % (Auto) 63.9 % Lymph % (Auto) 23.3 % Atlantic % (Auto) 6.3 % Eos % (Auto) 5.6 % Baso % (Auto) 0.6 % Neut # (Auto) 4.53 (1.4-6.5) K/uL Lymph # (Auto) 1.65 (1.2-3.4) K/uL Atlantic # (Auto) 0.45 (0.11-0.59) K/uL Eos # (Auto) 0.40 (0-0.5) K/uL Baso # (Auto) 0.04 (0-0.2) K/uL Immature Gran # (Auto) 0.02 (0.00-0.02) K/uL POC Sodium (135-144) mmol/L Sodium 139 (136-145) mmol/L POC Potassium (3.3-5.0) mmol/L Potassium 3.8 (3.5-5.1) mmol/L POC Chloride (101-112) mmol/L Chloride 107 (98-107) mmol/L Carbon Dioxide 27 (21-32) mmol/L POC Total CO2 (24-31) mmol/L Anion Gap 5.0 (3-11) POC Anion Gap (16-25) mmol/L POC BUN (7-18) mg/dl BUN 12 (7-18) mg/dl Creatinine 1.08 (0.6-1.4) mg/dl POC Creatinine (0.6-1.3) mg/dl Est Cr Clr Drug Dosing 94.4 ml/min Est GFR ( Amer) 101.1 Est GFR (Non-Af Amer) 87.2 BUN/Creatinine Ratio 10.9 (10-20) Glucose 99 (70-99) mg/dl POC Glucose (other) (70-99) mg/dl Lactate (0.4-2.0) mmol/L Calcium 9.1 (8.5-10.1) mg/dl POC Ioniz Calcium Cris (1.12-1.32) mmol/l Total Bilirubin 0.4 (0.2-1) mg/dl AST 13 L (15-37) U/L ALT 28 (12-78) U/L Alkaline Phosphatase 63 (45-117) U/L Total Protein 8.1 (6.4-8.2) gm/dl Albumin 4.2 (3.4-5.0) gm/dl Globulin 3.9 (2.5-4.0) gm/dl Albumin/Globulin Ratio 1.1 (0.9-2) Lipase 107 (73-393) U/L Urine Color Yellow Urine Appearance Clear (Clear) Urine pH 7.0 (4.5-7.5) Ur Specific Mozier 1.021 (1.000-1.030) Urine Protein Negative (Negative) Urine Glucose (UA) Negative (Negative) Urine Ketones Negative (Negative) Urine Blood Negative (Negative) Urine Nitrite Negative (Negative) Urine Bilirubin Negative (Negative) Urine Urobilinogen Negative (Negative) Ur Leukocyte Esterase Negative (Negative) 03/14/20 03/14/20 Range/Units 13:52 14:07 WBC (4.8-10.8) K/uL RBC (4.7-6.1) M/uL Hgb (14.0-18.0) g/dL POC Hgb 14.3 (14.0-18.0) g/dl Hct (42-52) % POC Hct 42 (42-52) % MCV (80-100) fL MCH (25-34) pg MCHC (32-36) g/dL RDW Std Deviation (36.4-46.3) fL RDW Coeff of Alda (11.5-14.5) % Plt Count (130-400) K/uL MPV (7.4-10.4) fL Immature Gran % (Auto) % Neut % (Auto) % Lymph % (Auto) % Atlantic % (Auto) % Eos % (Auto) % Baso % (Auto) % Neut # (Auto) (1.4-6.5) K/uL Lymph # (Auto) (1.2-3.4) K/uL Atlantic # (Auto) (0.11-0.59) K/uL Eos # (Auto) (0-0.5) K/uL Baso # (Auto) (0-0.2) K/uL Immature Gran # (Auto) (0.00-0.02) K/uL POC Sodium 141 (135-144) mmol/L Sodium (136-145) mmol/L POC Potassium 3.9 (3.3-5.0) mmol/L Potassium (3.5-5.1) mmol/L POC Chloride 102 (101-112) mmol/L Chloride (98-107) mmol/L Carbon Dioxide (21-32) mmol/L POC Total CO2 26 (24-31) mmol/L Anion Gap (3-11) POC Anion Gap 18.0 (16-25) mmol/L POC BUN 13 (7-18) mg/dl BUN (7-18) mg/dl Creatinine (0.6-1.4) mg/dl POC Creatinine 1.0 (0.6-1.3) mg/dl Est Cr Clr Drug Dosing ml/min Est GFR ( Amer) Est GFR (Non-Af Amer) BUN/Creatinine Ratio (10-20) Glucose (70-99) mg/dl POC Glucose (other) 103 H (70-99) mg/dl Lactate 1.2 (0.4-2.0) mmol/L Calcium (8.5-10.1) mg/dl POC Ioniz Calcium Cris 1.24 (1.12-1.32) mmol/l Total Bilirubin (0.2-1) mg/dl AST (15-37) U/L ALT (12-78) U/L Alkaline Phosphatase (45-117) U/L Total Protein (6.4-8.2) gm/dl Albumin (3.4-5.0) gm/dl Globulin (2.5-4.0) gm/dl Albumin/Globulin Ratio (0.9-2) Lipase (73-393) U/L Urine Color Urine Appearance (Clear) Urine pH (4.5-7.5) Ur Specific Mozier (1.000-1.030) Urine Protein (Negative) Urine Glucose (UA) (Negative) Urine Ketones (Negative) Urine Blood (Negative) Urine Nitrite (Negative) Urine Bilirubin (Negative) Urine Urobilinogen (Negative) Ur Leukocyte Esterase (Negative) Imaging Data Radiologist's Impression: [facility], [place] [phone] CT Scan Report Patient: DAILY THOMAS Date: 03/14/20 MR#: [id number] [facility] Acct ID:[id number]: Date: 1980[facility] Zip: [place] [address] Age: 39Location: ED Sex: M Room/Bed: Att Phy:Diagnosis: SEVERE KIDNEY STONE PAIN Brittney Phy: Mary Ann Solomon, DOService Date: 03/14/20 Fam Phy:Interpreting Phy: Clinton Schultz MD Admit Phy: Ordering Phy: Sammy Patricio MD cc: ~ CT SCAN OF THE ABDOMEN AND PELVIS WITH IV CONTRAST CLINICAL HISTORY: Left inguinal hernia. COMPARISON STUDY: Abdominal CT dated 11/02/2016. TECHNIQUE: Following the IV administration of 93 cc of Optiray 320, CT scan of the abdomen and pelvis is performed from the lung bases to the proximal femora. Images are reviewed in the axial, sagittal, and coronal planes. IV contrast was administered without complication. A dose lowering technique was utilized adhering to the principles of ALARA. CT DOSE: 384.79 mGycm FINDINGS: Lung bases: The heart is normal in size and without pericardial effusion. The lung bases are clear. Liver: The contrast-enhanced liver is normal in size, contour, and attenuation. There is no intrahepatic biliary ductal dilatation. The hepatic veins and portal veins are patent. Gallbladder: Unremarkable. Spleen: Normal in size and attenuation. Pancreas: Unremarkable. Adrenal glands: Unremarkable. Kidneys: The contrast enhanced kidneys are normal in size and without hydronephrosis. The kidneys enhance symmetrically. Subcentimeter cortical hypodensities likely represent cysts but are too small for definitive charac terization. Abdominal vasculature: The abdominal aorta is normal in course and caliber noting mild but age advanced atherosclerotic calcification. Bowel: A moderate left inguinal hernia contains a loop of small bowel as seen on image #378. The distal small bowel is decompressed, and the proximal small bowel is distended and fluid-filled measuring up to 3.4 cm in diameter. The appearance is consistent with a small bowel obstruction secondary to incarcerated left inguinal hernia. No focally thick walled bowel loops are identified. No pneumatosis intestinalis or portal venous gas is seen. The a ppendix is well-visualized and normal. Peritoneum: There is no intraperitoneal free air or abdominal ascites. There is a fat-containing umbilical hernia. Lymphadenopathy: None. Pelvic viscera: The bladder, prostate, and seminal vesicles are normal as imaged. A left inguinal hernia contains a segment of small bowel and fluid. Skeletal structures: Scattered bone islands are seen throughout the pelvis. No lytic or blastic lesions are seen. IMPRESSION: 1. Small bowel obstruction secondary to an incarcerated left inguinal hernia. 2. No intraperitoneal free air is seen. There are no focally thick walled bowel loops identified, and there is no pneumatosis intestinalis or portal venous gas. ACT 112: Negative or not required by law. Electronically signed by: Clinton Schultz M.D. 03/14/2020 3:29 PM Dictated: 03/14/20 1516 Transcribed: 03/14/20 1516 [facility] Narrative Patient was seen and evaluated as above in room B2. Review was performed of nursing notes and vital signs. I did review pertinent previous visits and patient history. After obtaining a thorough history and physical examination the above work up was performed. This is a 39-year-old male who presents emergency department complaining of left groin swelling. I tried to reduce his hernia without success. Patient was sent for CAT scan of the abdomen and pelvis this was concerning for an incarcerated abdominal hernia. The patient does not have an elevation in his wh ite blood cell count or his lactate. He was discussed with surgery and taken to the operating room. An order was placed for continuous cardiac monitoring. The monitor shows a rate of 67 with Normal Sinus rhythm. The patient was evaluated during the global COVID-19 pandemic, and that diagnosis was suspected/considered upon their initial presentation. Their evaluation, treatment and testing was consistent with current guidelines for patients who present with complaints or symptoms that may be related to COVID- 19. Impression & Plan Hernia, inguinal, left Discharge Plan Visit Data *Final* Discharge Date/Time: 03/14/20 16:45 Chief Complaint: Groin Pain Stated Complaint: SEVERE KIDNEY STONE PAIN ED Provider: Sammy Patricio Discharge Problem: Hernia, inguinal, left Patient Disposition: Admitted As Inpatient Condition: Good Discharge Instructions Interventions: ED Discharge Assessment Last Done: 03/14/20 16:45
--- NOTE | 2020-03-19 10:49 | Discharge Summary ---
Date of Service March 19, 2020 Admission HPI Per Admitting Provider 39 y/o male with previous left inguinal hernia now with intermittent bulging and pain usually able to reduce this at home until today. No N/V. Had breakfast this morning. Principal Diagnosis Recurrent, incarcerated left n hernia Discharge Exam Gastrointestinal (Abdomen) Inspection/Auscultation: + abdominal surgical incision (clean, dry) Percussion/Palpation: abdomen soft Discharge Data Allergies Allergy/AdvReac Type Severity Reaction Status Date / Time amoxicillin Allergy Unknown Verified 03/14/20 13:47 Consultations 03/14/20 16:01 Consult General Surgery Stat Procedures Performed Operation Date: 03/14/20 12:00 Actual Procedures p Laparoscopic Incarcerated Recurrent Left Inguinal Hernia Repair with mesh(Left) - Gary Rodriguez DO, FACS Ordered Studies 03/14/20 13:18 CT abd pelvis IV con only Stat Hospital Course (1) Hernia, inguinal, left: 39 y/o male presented to the ER with left groin pain. CT showed left inguinal hernia containing loop of small bowel and was unable to be reduced. He was taken to the operating room that evening for laparoscopic repair and transferred to the surgical floor for overnight observation. In the morning he was able to advance diet and tolerate oral analgesics and was stable for discharge home. Total Time Total Time Spent Total Time Spent (In Minutes): 10 Discharge Plan Discharge Items Patient Disposition: Home - Self-Care Reason For Visit: INCARCERATED HERNIA Discharge Diagnosis: repair of hernia Condition on Discharge: Good Activity: As commented below Lifting: No more than 10 pounds Bathing: No limitations Driving/Machine Use: Resume 3 days after discharge Non-emergency contact: Surgeon Call non-emergency contact if: you have any medication questions, your pain is not controlled, your temperature is above 101.5 and your wound has increased redness Follow-up/Referrals: Mary Ann Solomon DO [Primary Care Provider] - Gary Rodriguez DO, FACS [Physician] - (Call the office to make an appt in 1-2 weeks) Diet: Regular Addtl Attending Provider Instructions: Addtl [employer] Provider Instructions: You can take ibuprofen 600 mg every 6 hours as needed between Percocet Pending Studies at Discharge: No Stand-Alone Forms: [facility], Opioid Pain Management, Virtual Emergency Department, Important Visit Information Medications and DC Order Prescriptions: New oxycodone-acetaminophen [Percocet] 5-325 mg tablet 1 - 2 tab PO Q4H PRN (Reason: pain, initial therapy, max 6 daily) Qty: 15 RF: 0 Continued ibuprofen 200 mg Tablet 400 mg PO Q6H PRN (Reason: Pain) RF: 0 Discharge Orders: Discharge Order (Routine); Ordered 03/15/20 Ordered By: Tyrone Villalobos Jr Admission Data Admit Date/Time: 03/14/20 18:38 Attending Provider: Gary Rodriguez Admit Provider: Gary Rodriguez Primary Care Provider: Mary Ann Solomon Other Providers: Gary Rodriguez Other Interventions: Discharge Summary Assessment (RN) Last Done: 03/15/20 10:28 DC Date/Time DO NOT enter until pt leaves facility: 03/15/20 13:40 Coding Level of Care Code D/C Day Management <30 mins Diagnoses Hernia, inguinal, left K40.90
== END 2020-03-15 13:40 | disposition home or self-care (01) ==
LOC: ED 12:59 → OR 16:45 → 3N 16:45